=== PATIENT | female | born 1945 | race Two or more races ===

== ENCOUNTER 2018-11-19 10:07 | Emergency (ER) | payer MEDICARE, OTHER ==
[~2018-11-19] VITALS: Ht 165.1 cm; Wt 70.0 kg
[2018-11-19] MEDS ORDERED: ONDANSETRON 4 MG INJ IV STA (10:10)
[2018-11-19] MEDS ORDERED: morphine 4 MG/ML VIAL IV STA (10:10)
[2018-11-19 10:19] VITALS: Ht 165.1 cm; Wt 70.0 kg
[2018-11-19] MEDS ORDERED: KETOROLAC 15 MG INJ IV STA (12:40)
--- NOTE | 2018-11-19 12:40 | ERD ---
ER Documentation Chief Complaint Chief Complaint abdominal pain RUQ with n/v HPI This is a 73-year-old female presents with right flank and right upper quadrant pain for the last day. She states she has a history of gallstones, although this pain is somewhat different. She denies fever, denies hematuria, there are no alleviating or aggravating factors. There is no chest pain or shortness of breath. ROS All systems reviewed and are negative except as per history of present illness. Medications Home Meds Active Scripts Ibuprofen* (Motrin*) 600 Mg Tab, 600 MG PO Q6, #30 TAB Prov:GIL GUALLPA MD 11/19/18 Allergies Allergies: Coded Allergies: No Known Allergy (Unverified , 11/19/18) PMhx/Soc History of Surgery: Yes (APPY, LASIX) Anesthesia Reaction: No Hx Neurological Disorder: No Hx Respiratory Disorders: No Hx Cardiac Disorders: No Hx Psychiatric Problems: No Hx Miscellaneous Medical Probl: No Hx Alcohol Use: No Hx Substance Use: No Smoking Status: Never smoker Physical Exam Vitals Vital Signs Date Temp Pulse Resp B/P (MAP) Pulse Ox O2 O2 Flow FiO2 Time Delivery Rate 11/19/18 98.4 67 16 113/59 98 Room Air 13:35 (77) 11/19/18 85 16 140/78 100 Room Air 12:00 (98) 11/19/18 98.0 87 18 144/79 100 10:19 (100) Physical Exam Const: Uncomfortable appearing Head: Atraumatic Eyes: Normal Conjunctiva ENT: Normal External Ears, Nose and Mouth. Neck: Full range of motion. No meningismus. Resp: Clear to auscultation bilaterally Cardio: Regular rate and rhythm, no murmurs Abd: Soft, non tender, non distended. Normal bowel sounds Skin: No petechiae or rashes Back: No midline or flank tenderness Ext: No cyanosis, or edema Neur: Awake and alert Psych: Normal Mood and Affect Result Diagram: 11/19/18 1030 11/19/18 1030 Results 24 hrs Laboratory Tests Test 11/19/18 10:30 White Blood Count 9.5 10^3/ul Red Blood Count 4.74 10^6/ul Hemoglobin 13.7 g/dl Hematocrit 41.0 % Mean Corpuscular Volume 86.5 fl Mean Corpuscular Hemoglobin 28.9 pg Mean Corpuscular Hemoglobin Concent 33.4 g/dl Red Cell Distribution Width 13.2 % Platelet Count 226 10^3/UL Mean Platelet Volume 10.0 fl Immature Granulocytes % 0.600 % Neutrophils % 85.9 % Lymphocytes % 10.1 % Monocytes % 3.0 % Eosinophils % 0.1 % Basophils % 0.3 % Nucleated Red Blood Cells % 0.0 /100WBC Immature Granulocytes # 0.060 10^3/ul Neutrophils # 8.1 10^3/ul Lymphocytes # 1.0 10^3/ul Monocytes # 0.3 10^3/ul Eosinophils # 0.0 10^3/ul Basophils # 0.0 10^3/ul Nucleated Red Blood Cells # 0.0 10^3/ul Urine Color YELLOW Urine Clarity SLIGHTLY CLOUDY Urine pH 5.0 Urine Specific Cougar 1.021 Urine Ketones TRACE mg/dL Urine Nitrite NEGATIVE mg/dL Urine Bilirubin NEGATIVE mg/dL Urine Urobilinogen NEGATIVE mg/dL Urine Leukocyte Esterase NEGATIVE Berto/ul Urine Microscopic RBC 6 /HPF Urine Microscopic WBC 2 /HPF Urine Squamous Epithelial Cells FEW /HPF Urine Bacteria FEW /HPF Urine Mucus FEW /HPF Urine Hemoglobin 2+ mg/dL Urine Glucose NEGATIVE mg/dL Urine Total Protein 2+ mg/dl Sodium Level 141 mmol/L Potassium Level 3.5 mmol/L Chloride Level 108 mmol/L Carbon Dioxide Level 22 mmol/L Anion Gap 11 Blood Urea Nitrogen 18 mg/dl Creatinine 1.19 mg/dl Est Glomerular Filtrat Rate mL/min mL/min Glucose Level 178 mg/dl Calcium Level 10.0 mg/dl Total Bilirubin 0.6 mg/dl Direct Bilirubin 0.00 mg/dl Indirect Bilirubin 0.6 mg/dl Aspartate Amino Transf (AST/SGOT) 22 IU/L Alanine Aminotransferase (ALT/SGPT) 18 IU/L Alkaline Phosphatase 65 IU/L Troponin I < 0.012 ng/ml Total Protein 8.9 g/dl Albumin 4.8 g/dl Globulin 4.10 g/dl Albumin/Globulin Ratio 1.17 Lipase 71 U/L Current Medications Medications Dose Sig/Neo Start Time Status Last (Trade) Ordered Route PRN Stop Time Admin Dose Reason Admin Morphine 4 mg ONCE STAT 11/19/18 DC 11/19/18 Sulfate IV 10:10 11/19/18 10:35 (morphine) 10:13 Ondansetron 4 mg ONCE STAT 11/19/18 DC 11/19/18 HCl (Zofran IV 10:10 11/19/18 10:35 Inj) 10:13 Ketorolac 15 mg ONCE STAT 11/19/18 DC 11/19/18 Tromethamine IV 12:40 11/19/18 13:05 (Toradol) 13:00 Procedures/MDM This is a pleasant 73-year-old female presents for right upper quadrant/right flank pain. Her labs were overall unremarkable, her pain was significantly relieved in the ED, on my reevaluation, her abdomen was soft and nontender, her CT showed nonobstructing kidney stone, with no evidence of infection, I suspect is most likely etiology of her pain, at discharge patient was in no acute distress. EKG: Rate/Rhythm: Normal Sinus Rhythm QRS, ST, T-waves: No changes consistent w/ acute ischemia Impression: No evidence of ischemia or arrhythmia EKG: Rate/Rhythm: Normal Sinus Rhythm QRS, ST, T-waves: No changes consistent w/ acute ischemia Impression: No evidence of ischemia or arrhythmia Departure Diagnosis: Primary Impression: Kidney stone Condition: Stable GIL GUALLPA MD Nov 19, 2018 12:40
[2018-11-19] MEDS ORDERED: IBUP-1542 PO (13:25)
[2018-11-19 13:35] VITALS: BP 113/59; PULSE 67; RESP 16
== END 2018-11-19 13:35 | disposition home or self-care (01) ==
LOC: E/R 10:07
DX: N20.0 Calculus of kidney (principal)
CPT/HCPCS: 71045; 74176; 76705; 80053; 81001; 83690; 84484; 85025; 93005; 96374; 96375; 99285; J1885; J2270; J2405